=== PATIENT | female | born 1980 | race Caucasian/White ===

== ENCOUNTER 2018-02-16 19:27 | Inpatient (IN) ==
[2018-02-16] MEDS ORDERED: TERBUTALINE 1 MG/1 ML VIAL SUBCUT PRN (20:01)
[2018-02-16] MEDS ORDERED: MEPERIDINE 50 MG/1 ML VIAL IV PRN (20:01)
[2018-02-16 20:48] LABS: Basophils % 0.3 % (0.0-0.8); Eosinophils # 0.1 10*3/uL (0.0-0.87); Eosinophils % 0.4 % (0.00-10.9); Hematocrit 32.8 VOL% (35.7-47.0); Hemoglobin 11.6 GM/DL (12.0-16.0); Immature Granulocytes % 0.6 %; Immature Granulocytes Absolute 0.07 #; Lymphocytes # 2.6 10*3/uL (1.4-4.0); Lymphocytes % 22.3 % (21.3-54.2); Mean Corpuscular HGB Conc 35.4 GM/DL (32-36); Mean Corpuscular Hemoglobin 31 PG (27-34); Mean Corpuscular Volume 87.5 FL (87-102); Mean Platelet Volume 9.9 FL (9.6-12.0); Monocytes # 0.6 10*3/uL (0.11-0.8); Monocytes % 5.5 % (1.7-12.7); Neutrophils # 8.2 10*3/uL (1.4-7.4); Neutrophils % 70.9 % (38.7-73.9); Platelet Count 331 T/CUMM (130-400); Red Blood Count 3.75 MC/CUMM (3.8-5.5); Red Cell Distribution Width 13.4 % (9.3-17.3); White Blood Count 11.6 T/CUMM (4-12)
[2018-02-16 21:16] LABS: Alanine Aminotransferase 19 U/L (13-56); Albumin 3.1 G/DL (3.4-5.0); Alkaline Phosphatase 85 U/L (45-117); Aspartate Amino Transferase 9 U/L (0-37); Bilirubin,Total < 0.39 MG/DL (0.2-1.0); Blood Urea Nitrogen 15 MG/DL (7-18); Calcium 8.7 MG/DL (8.5-10.1); Glucose 126 MG/DL (74-106); Osmolality,Calculated 281.4 MOS/KG (273-304); Potassium 3.9 MMOL/L (3.5-5.1); Sodium 140 MMOL/L (136-145); Total Protein 6.6 G/DL (6.4-8.3)
[2018-02-16] MEDS: LABETALOL 200 MG TABLET PO SCH (21:38)
[2018-02-16] MEDS: LACTATED RINGERS 1,000 ML IV SCH (23:15)
[2018-02-17] MEDS: LACTATED RINGERS 1,000 ML IV SCH ×4 (06:04→16:18)
[2018-02-17] MEDS: INSULIN REGULAR 100 UNIT/ML SUBCUT SCH ×2 (08:06→17:16)
[2018-02-17] MEDS: INSULIN NPH 100 UNIT/ML SUBCUT SCH ×2 (08:07→17:17)
[2018-02-17] MEDS: LABETALOL 200 MG TABLET PO SCH (09:18)
[2018-02-18] MEDS: LABETALOL 200 MG TABLET PO SCH ×3 (00:03→21:10)
[2018-02-18] MEDS: BUTORPHANOL 2 MG/ML VIAL IV PRN ×3 (00:12→08:36)
[2018-02-18] MEDS: ONDANSETRON 4 MG/2 ML VIAL IV PRN ×3 (00:15→17:26)
[2018-02-18] MEDS ORDERED: BUPIVACAINE SPINAL 0.75% 2 ML AMP SPINAL ONE (07:02)
[2018-02-18] MEDS ORDERED: FAMOTIDINE 20 MG/2 ML VIAL IV ONE (09:45)
[2018-02-18] MEDS ORDERED: CITRIC ACID/SODIUM CITRATE 30 ML UDCUP PO ONE (09:45)
[2018-02-18] MEDS: LACTATED RINGERS 1,000 ML IV SCH ×2 (09:50→11:00)
[2018-02-18] MEDS ORDERED: OXYTOCIN/LR 20 UNIT/1,000 ML BAG IV ONE ×2 (10:02→13:14)
[2018-02-18] MEDS ORDERED: ceFAZolin 2,000 MG in PREMIX 1 EACH IV ONE (11:53)
[2018-02-18] MEDS ORDERED: MEASLES/MUMPS/RUBELLA VACCINE 0.5 ML VIAL SUBCUT ONE (13:14)
[2018-02-18] MEDS ORDERED: HYDROCORTISONE 2.5% RECTAL CREAM 30 GM TUBE TOP PRN (13:14)
[2018-02-18] MEDS ORDERED: RHO(D) IMMUNE GLOBULIN 300 MCG SYRINGE IM ONE (13:14)
[2018-02-18] MEDS ORDERED: BISACODYL 10 MG SUPP RECTAL PRN (13:14)
[2018-02-18] MEDS ORDERED: ACETAMINOPHEN 325 MG TABLET PO PRN (13:14)
[2018-02-18] MEDS ORDERED: WITCH HAZEL PADS 100/JAR TOP PRN (13:14)
[2018-02-18] MEDS ORDERED: ONDANSETRON 4 MG/2 ML VIAL IV PRN (13:14)
[2018-02-18] MEDS ORDERED: LANOLIN 50% CREAM 0.3 OZ TUBE TOP PRN (13:14)
[2018-02-18] MEDS ORDERED: BENZOCAINE 20%/MENTHOL 0.5% SPRAY 56 GM CAN TOP PRN (13:14)
[2018-02-18] MEDS ORDERED: oxyCODONE/ACETAMINOPHEN 5-325 MG TABLET PO PRN (13:14)
[2018-02-18] MEDS ORDERED: DIPH/TET/ACEL PERT BOOSTER VACCINE 0.5 ML VIAL IM ONE (13:14)
[2018-02-18] MEDS ORDERED: MORPHINE 10 MG/10 ML VIAL ONE (13:26)
[2018-02-18] MEDS ORDERED: ePHEDrine 50 MG/ML AMP ONE (13:27)
[2018-02-18] MEDS ORDERED: fentaNYL 100 MCG/2 ML VIAL ONE (13:27)
[2018-02-18] MEDS ORDERED: ONDANSETRON 4 MG/2 ML VIAL ONE (14:54)
[2018-02-18] MEDS ORDERED: PHENYLEPHRINE 1 MG/10 ML SYRINGE IV ONE (14:55)
[2018-02-18] MEDS: INSULIN NPH 100 UNIT/ML SUBCUT SCH ×2 (17:34→20:37)
[2018-02-18] MEDS: INSULIN REGULAR 100 UNIT/ML SUBCUT SCH ×2 (17:34→20:37)
[2018-02-18] MEDS ORDERED: PROMETHAZINE 25 MG/1 ML VIAL IM PRN (18:23)
[2018-02-18] MEDS: ceFAZolin 1,000 MG in SYRINGE 1 EACH IV SCH (21:09)
[2018-02-19] MEDS: LACTATED RINGERS 1,000 ML IV SCH ×4 (01:30→23:23)
[2018-02-19] MEDS: DOCUSATE SODIUM 100 MG CAPSULE PO SCH ×4 (02:45→23:24)
[2018-02-19 05:06] LABS: Basophils # 0.1 10*3/uL (0.0-0.2); Basophils % 0.3 % (0.0-0.8); Eosinophils % 0.2 % (0.00-10.9); Hemoglobin 11.6 GM/DL (12.0-16.0); Immature Granulocytes % 0.7 %; Immature Granulocytes Absolute 0.12 #; Lymphocytes # 2.6 10*3/uL (1.4-4.0); Lymphocytes % 14.6 % (21.3-54.2); Mean Corpuscular HGB Conc 34.1 GM/DL (32-36); Mean Corpuscular Hemoglobin 31 PG (27-34); Mean Corpuscular Volume 91.2 FL (87-102); Monocytes # 1.4 10*3/uL (0.11-0.8); Monocytes % 8.1 % (1.7-12.7); Neutrophils # 13.4 10*3/uL (1.4-7.4); Neutrophils % 76.1 % (38.7-73.9); Platelet Count 289 T/CUMM (130-400); Red Blood Count 3.73 MC/CUMM (3.8-5.5); Red Cell Distribution Width 13.5 % (9.3-17.3); White Blood Count 17.6 T/CUMM (4-12)
[2018-02-19] MEDS: ceFAZolin 1,000 MG in SYRINGE 1 EACH IV SCH ×2 (05:33→15:15)
[2018-02-19] MEDS: IBUPROFEN 800 MG TABLET PO PRN ×2 (06:19→19:56)
[2018-02-19] MEDS: oxyCODONE/ACETAMINOPHEN 5-325 MG TABLET PO PRN ×2 (06:20→11:44)
[2018-02-19] MEDS ORDERED: GLUCAGON 1 MG VIAL IM PRN ×2 (09:14→10:45)
[2018-02-19] MEDS ORDERED: DEXTROSE 50% 25 GM/50 ML VIAL IV PRN ×2 (09:14→10:45)
[2018-02-19] MEDS ORDERED: diphenhydrAMINE CAP 25 MG CAPSULE PO ONE (14:12)
[2018-02-19] MEDS: MAGNESIUM HYDROXIDE SUSP 30 ML UDCUP PO PRN (20:44)
[2018-02-19] MEDS: INSULIN REGULAR 100 UNIT/ML SUBCUT SCH ×2 (23:22→23:23)
[2018-02-19] MEDS: LABETALOL 100 MG TABLET PO SCH (23:24)
[2018-02-20 02:15] LABS: Apearance,Urine CLEAR (Clear); Bilirubin,Urine Negative (Negative); Blood, Urine Negative (Negative); Glucose,Urine (UA) Negative (Negative); Hyaline Casts,Urine 4 /LPF (0-3); Ketones,Urine 20 mg/dL (Negative); Mucus,Urine Few /LPF (Occasional); Nitrite,Urine Negative (Negative); Protein,Urine Negative; RBC,Urine 1 /HPF (0-4); Squamous Epithelial Cell,Urine Occasional /HPF (0-10); Urine Color Yellow (Yellow); Urine Specific Gravity 1.019 (1.001-1.035); Urine Urobilinogen < 2.0 EU/DL (0.2-1.0); WBC,Urine 3 /HPF (0-6)
[2018-02-20] MEDS: DOCUSATE SODIUM 100 MG CAPSULE PO SCH ×2 (09:57→20:11)
[2018-02-20] MEDS: LABETALOL 100 MG TABLET PO SCH ×2 (09:57→20:11)
[2018-02-20] MEDS: INSULIN REGULAR 100 UNIT/ML SUBCUT SCH ×4 (09:58→20:51)
[2018-02-20] MEDS ORDERED: oxyCODONE/ACETAMINOPHEN 5-325 MG TABLET ONE (14:38)
[2018-02-20] MEDS: MAGNESIUM HYDROXIDE SUSP 30 ML UDCUP PO PRN (20:10)
[2018-02-20] MEDS: IBUPROFEN 800 MG TABLET PO PRN (20:10)
[2018-02-20] MEDS: oxyCODONE/ACETAMINOPHEN 5-325 MG TABLET PO PRN (20:37)
[2018-02-21 07:45] VITALS: BP 122/64
[2018-02-21] MEDS: INSULIN REGULAR 100 UNIT/ML SUBCUT SCH ×2 (07:50→11:29)
[2018-02-21] MEDS: DOCUSATE SODIUM 100 MG CAPSULE PO SCH (08:02)
[2018-02-21] MEDS: MAGNESIUM HYDROXIDE SUSP 30 ML UDCUP PO PRN (08:02)
[2018-02-21] MEDS: LABETALOL 100 MG TABLET PO SCH (08:04)
[2018-02-21] MEDS: oxyCODONE/ACETAMINOPHEN 5-325 MG TABLET PO PRN (09:02)
== END 2018-02-21 12:15 | disposition home or self-care (01) | DRG 540 ==
LOC: N.LDOUT 19:27 → N.LD 19:30 → N.OB 02-18 13:15 → N.LD 02-18 15:22 → N.OB 02-18 16:47
PROVIDERS: ADMIT Specialist; ATTEND Specialist
PROC: LDCSECT (ICD-10-PCS; 2018-02-18 12:00)

== ENCOUNTER 2021-11-27 05:43 | Inpatient (IN) ==
[2021-11-27] MEDS ORDERED: FAMOTIDINE 20 MG/2 ML VIAL IV ONE (06:02)
[2021-11-27] MEDS ORDERED: CITRIC ACID/SODIUM CITRATE 30 ML UDCUP PO ONE (06:02)
[2021-11-27] MEDS ORDERED: OXYTOCIN/LR 20 UNIT/1,000 ML BAG IV PRN (06:04)
[2021-11-27] MEDS ORDERED: LACTATED RINGERS 1,000 ML IV ONE (06:05)
[2021-11-27] MEDS ORDERED: ceFAZolin 3,000 MG in SYRINGE 1 EACH IV ONE (06:30)
[2021-11-27 06:40] LABS: Basophils # 0.1 10*3/uL (0.0-0.2); Basophils % 0.4 % (0.0-0.8); Eosinophils # 0.2 10*3/uL (0.0-0.87); Eosinophils % 1.4 % (0.00-10.9); Hematocrit 37.6 VOL% (35.7-47.0); Hemoglobin 12.4 GM/DL (12.0-16.0); Immature Granulocytes % 0.6 %; Immature Granulocytes Absolute 0.07 #; Lymphocytes # 2.8 10*3/uL (1.4-4.0); Lymphocytes % 23.4 % (21.3-54.2); Mean Corpuscular Volume 88.1 FL (87-102); Mean Platelet Volume 10.5 FL (9.6-12.0); Neutrophils % 68.2 % (38.7-73.9); Platelet Count 341 T/CUMM (130-400); Red Blood Count 4.27 MC/CUMM (3.8-5.5); Red Cell Distribution Width 14.1 % (9.3-17.3); White Blood Count 12.1 T/CUMM (4-12)
[2021-11-27 07:03] LABS: Albumin 2.8 G/DL (3.4-5.0); Bilirubin,Total 0.7 MG/DL (0.20-1.00); Osmolality,Calculated 275.5 MOS/KG (273-304); Potassium 3.6 MMOL/L (3.5-5.1); Total Protein 7.5 G/DL (6.4-8.2)
[2021-11-27 07:09] LABS: Eosinophils 1 % (0-10); Hypochromia Slight; Lymphocytes 19 % (20-55); Microcytosis Slight; Platelet Estimate Adequate; Segmented Neutrophils 73 % (50-85); Total Cells Counted 100
[2021-11-27 07:29] LABS: INR 0.9; PT Patient Result 10.3 SECS (10.5-12.0); Partial Thromboplastin Time 27.9 SECS (23.8-32.1)
[2021-11-27] MEDS ORDERED: CARBOPROST TROMETHAMINE 250 MCG/ML AMP IM ONE (07:43)
[2021-11-27] MEDS: LACTATED RINGERS 1,000 ML IV SCH ×2 (07:48→20:30)
[2021-11-27] MEDS ORDERED: ONDANSETRON 4 MG/2 ML VIAL ONE (08:01)
[2021-11-27] MEDS ORDERED: BUPIVACAINE MPF 0.25% 30 ML VIAL ONE (08:01)
[2021-11-27] MEDS ORDERED: BUPIVACAINE SPINAL 0.75% 2 ML AMP SPINAL ONE (08:01)
[2021-11-27] MEDS ORDERED: KETOROLAC 30 MG/1 ML VIAL ONE (08:46)
[2021-11-27] MEDS ORDERED: ACETAMINOPHEN INJ 1,000 MG/100 ML VIAL IV ONE ×2 (08:46→08:50)
[2021-11-27] MEDS ORDERED: PHENYLEPHRINE 1 MG/10 ML SYRINGE IV ONE (09:10)
[2021-11-27 09:14] LABS: Cord Arterial Blood HCO3 19.5 MMOL/L
[2021-11-27 09:15] LABS: Cord Venous Blood HCO3 21.8 MMOL/L; Cord Venous Blood PCO2 46.4 MMHG; Cord Venous Blood PO2 20.2
[2021-11-27 13:35] LABS: Amorphous Crystals,Urine Occasional /HPF (Few); Bacteria,Urine Occasional /HPF (Few); Bilirubin,Urine Negative (Negative); Blood, Urine Negative (Negative); Glucose,Urine (UA) Negative (Negative); Ketones,Urine 5 mg/dL (Negative); Mucus,Urine Occasional /LPF (Occasional); Nitrite,Urine Negative (Negative); Protein,Urine Negative; RBC,Urine 4 /HPF (0-4); Squamous Epithelial Cell,Urine Occasional /HPF (0-10); Urine Appearance CLEAR (Clear); Urine Color Yellow (Yellow); Urine Specific Gravity 1.011 (1.001-1.035); Urine Urobilinogen < 2.0 EU/DL (<2.0)
[2021-11-27] MEDS ORDERED: DEXTROSE 10% 250 ML BAG IV PRN (13:49)
[2021-11-27] MEDS ORDERED: GLUCAGON 1 MG VIAL IM PRN ×2 (13:49→14:49)
[2021-11-27] MEDS ORDERED: MEASLES/MUMPS/RUBELLA VACCINE 0.5 ML VIAL SUBCUT ONE (14:47)
[2021-11-27] MEDS ORDERED: ONDANSETRON 4 MG/2 ML VIAL IV PRN (14:47)
[2021-11-27] MEDS ORDERED: IBUPROFEN 800 MG TABLET PO PRN (14:47)
[2021-11-27] MEDS ORDERED: LANOLIN 50% CREAM 0.3 OZ TUBE TOP PRN (14:47)
[2021-11-27] MEDS ORDERED: DIPH/TET/ACEL PERT BOOSTER VACCINE 0.5 ML VIAL IM ONE (14:47)
[2021-11-27] MEDS ORDERED: BISACODYL 10 MG SUPP RECTAL PRN (14:47)
[2021-11-27] MEDS ORDERED: ACETAMINOPHEN 325 MG TABLET PO PRN (14:47)
[2021-11-27] MEDS ORDERED: RHO(D) IMMUNE GLOBULIN 300 MCG SYRINGE IM ONE (14:47)
[2021-11-27] MEDS ORDERED: BENZOCAINE 20%/MENTHOL 0.5% SPRAY 56 GM CAN TOP PRN (14:47)
[2021-11-27] MEDS ORDERED: HYDROCORTISONE 2.5% RECTAL CREAM 30 GM TUBE TOP PRN (14:47)
[2021-11-27] MEDS ORDERED: OXYTOCIN/LR 20 UNIT/1,000 ML BAG IV ONE (14:47)
[2021-11-27] MEDS ORDERED: oxyCODONE/ACETAMINOPHEN 5-325 MG TABLET PO PRN (14:47)
[2021-11-27] MEDS ORDERED: WITCH HAZEL PADS 100/JAR TOP PRN (14:47)
[2021-11-27] MEDS ORDERED: DEXTROSE 50% 25 GM/50 ML VIAL IV PRN (14:49)
[2021-11-27] MEDS: ACETAMINOPHEN 500 MG TABLET PO SCH ×2 (15:36→21:06)
[2021-11-27] MEDS: KETOROLAC 30 MG/1 ML VIAL IV SCH ×2 (15:37→21:05)
[2021-11-27] MEDS: ceFAZolin 2,000 MG/50 ML DUPLEX IV SCH ×2 (15:38→23:56)
[2021-11-27] MEDS: INSULIN REGULAR 100 UNIT/ML SUBCUT SCH (15:40)
[2021-11-28] MEDS: DOCUSATE SODIUM 100 MG CAPSULE PO SCH ×3 (02:08→21:38)
[2021-11-28] MEDS: KETOROLAC 30 MG/1 ML VIAL IV SCH (03:14)
[2021-11-28] MEDS: ACETAMINOPHEN 500 MG TABLET PO SCH (03:15)
[2021-11-28 04:43] LABS: Basophils # 0.1 10*3/uL (0.0-0.2); Basophils % 0.5 % (0.0-0.8); Eosinophils # 0.2 10*3/uL (0.0-0.87); Eosinophils % 2.1 % (0.00-10.9); Hematocrit 30.8 VOL% (35.7-47.0); Immature Granulocytes % 0.4 %; Immature Granulocytes Absolute 0.05 #; Lymphocytes # 2.5 10*3/uL (1.4-4.0); Lymphocytes % 21.4 % (21.3-54.2); Mean Corpuscular HGB Conc 32.5 GM/DL (32-36); Mean Corpuscular Volume 90.3 FL (87-102); Mean Platelet Volume 10.5 FL (9.6-12.0); Monocytes % 6.5 % (1.7-12.7); Neutrophils % 69.1 % (38.7-73.9); Platelet Count 240 T/CUMM (130-400); Red Blood Count 3.41 MC/CUMM (3.8-5.5); Red Cell Distribution Width 14.2 % (9.3-17.3); White Blood Count 11.7 T/CUMM (4-12)
[2021-11-28 05:13] LABS: Eosinophils 1 % (0-10); Hypochromia 1+; Lymphocytes 24 % (20-55); Microcytosis 1+; Platelet Estimate Adequate; Segmented Neutrophils 68 % (50-85); Total Cells Counted 100
[2021-11-28] MEDS: INSULIN REGULAR 100 UNIT/ML SUBCUT SCH ×3 (07:30→22:03)
[2021-11-28] MEDS: MAGNESIUM HYDROXIDE SUSP 30 ML UDCUP PO PRN ×2 (09:07→21:38)
[2021-11-28] MEDS: SIMETHICONE CHEW 80 MG TABLET PO PRN ×2 (09:07→21:38)
[2021-11-28] MEDS: oxyCODONE/ACETAMINOPHEN 5-325 MG TABLET PO PRN ×2 (13:09→21:39)
[2021-11-28] MEDS ORDERED: PROMETHAZINE 25 MG/1 ML VIAL IM ONE (17:24)
[2021-11-28] MEDS ORDERED: MEPERIDINE 50 MG/1 ML VIAL IM ONE (17:30)
[2021-11-29] MEDS: oxyCODONE/ACETAMINOPHEN 5-325 MG TABLET PO PRN ×2 (03:13→09:21)
[2021-11-29] MEDS: DOCUSATE SODIUM 100 MG CAPSULE PO SCH (09:19)
[2021-11-29] MEDS: SIMETHICONE CHEW 80 MG TABLET PO PRN (09:19)
[2021-11-29] MEDS ORDERED: DIPH/TET/ACEL PERT BOOSTER VACCINE 0.5 ML VIAL IM ONE (10:23)
[2021-11-29 12:16] VITALS: BP 114/76
[2021-11-29] MEDS: amLODIPine 5 MG TABLET PO SCH (14:11)
== END 2021-11-29 12:40 | disposition home or self-care (01) | DRG 539 ==
LOC: N.LD 05:43 → N.OB 14:41
PROVIDERS: ADMIT Specialist; ATTEND Specialist